=== PATIENT | female | born 1985 | race Caucasian/White ===

== ENCOUNTER 2020-03-30 18:15 | Emergency (ER) | payer OTHER ==
[~2020-03-30] VITALS: Ht 170.2 cm; Wt 58.1 kg
--- NOTE | 2020-03-30 18:39 | NUR ---
Dr. Groves at bedside for MSE
--- NOTE | 2020-03-30 18:54 | NUR ---
Patient discharged to home in stable condition. Written and verbal after care instructions given. Patient verbalizes understanding of instructions. Stressed follow up or return to ER for worsening s/s. Patient ambulated with steady gait. NAD noted
[2020-03-30 19:05] VITALS: BP 102/69
== END 2020-03-30 18:54 | disposition home or self-care (01) ==
LOC: ER 18:15
DX: H92.03 Otalgia, bilateral (principal)
CPT/HCPCS: A4663